=== PATIENT | female | born 1975 | race Caucasian/White ===

== ENCOUNTER 2019-08-16 13:43 | Emergency (ER) | payer OTHER ==
[2019-08-16 14:02] VITALS: PULSE 70; RESP 16; TEMP 98
--- NOTE | 2019-08-16 14:20 | ED ---
Skin/Abscess/FB HPI - General Chief complaint: Skin/Abscess/Foreign Body Stated complaint: FB throat Time Seen by Provider: 08/16/19 14:06 Source: patient, RN notes reviewed, old records reviewed Mode of arrival: ambulatory Limitations: no limitations - History of Present Illness Initial comments: Isn't is a 44-year-old female presents emergency department today with chief complaint of esophagus and chest pain that starts from her sternum radiating towards her back, after she actually swallowed a chicken bone on Sunday. Patient reports that she's been having these intermittent sharp pains since that time. Patient states it does feel like her saliva or food is going over something in her mid throat. Patient states that she has had no difficulty breathing. No vomiting and has been able to tolerate liquids. - Related Data Home Medications Medication Instructions Recorded Confirmed No Known Home Medications 08/16/19 08/16/19 Allergies Allergy/AdvReac Type Severity Reaction Status Date / Time aspirin Allergy Swelling Verified 08/16/19 15:05 Review of Systems ROS Statement: Those systems with pertinent positive or pertinent negative responses have been documented in the HPI. ROS Other: All systems not noted in ROS Statement are negative. Past Medical History Past Medical History: No Reported History History of Any Multi-Drug Resistant Organisms: None Reported Additional Past Surgical History / Comment(s): foot Past Psychological History: No Psychological Hx Reported Smoking Status: Current every day smoker Past Alcohol Use History: None Reported Past Drug Use History: None Reported General Exam - General Exam Comments Initial Comments: 44-year-old female. Alert and oriented. Limitations: no limitations Course Vital Signs 08/16/19 14:00 Temperature 98.0 F Pulse Rate 70 Respiratory 16 Rate Blood Pressure 138/95 O2 Sat by Pulse 99 Oximetry Medical Decision Making - Medical Decision Making Patient is a 44-year-old female presents today for concerns for foreign body sensation in her throat and chest. Patient reports she swallowed a chicken bone on Sunday and continue to have some pains in some trouble swallowing since then. She has been able to drink and tolerate fluids and food. Patient denies any persistent abdominal chest pain. Patient x-rays reviewed and negative for any acute process including the throat and chest and abdomen. EKG showed no acute process. On reevaluation after GI cocktail she does report improvement of symptoms and states that her pain is now numbed. I discussed likely scratched within her esophagus causing her symptoms which will result. Discussed that she has any further persistent pain she should return for reevaluation. All cautions were answered return parameters were discussed. 08/16/19 15:18 EKG performed at 1513 shows sinus bradycardia, low voltage QRS. Cannot rule out anterior infarct age. Ventricular rate 57 bpm. Was 146 ms. Respiration is a 4 ms. QT QTc is 420/[address] elevation or T-wave inversion. - Radiology Data Radiology results: report reviewed KUB is normal, no acute abdominal abnormality. Normal soft tissue of the neck. Chest x-ray. Disposition Clinical Impression: Esophageal abrasion Disposition: HOME SELF-CARE Condition: Good Instructions (If sedation given, give patient instructions): Esophageal Foreign Body (ED) Additional Instructions: Patient advised to drink plenty of fluids. Follow-up with her primary care doctor if symptoms continue to persist. Return to the emergency department if any alarming signs or symptoms occur. [place]: [phone] [place] [address] Appointment is Necessary Call @6AM Sunday, Sunday, Sunday & 8am-11am Only take patients with no insurance or Medicaid. ---Do not accept patient with Blue Cross, Medicare, or Commerical Insurance Is patient prescribed a controlled substance at d/c from ED?: No Referrals: None,Stated [Primary Care Provider] - 1-2 days Denise Blankenship MD [REFERRING] - 1-2 days Time of Disposition: 15:43
[2019-08-16] MEDS ORDERED: MAG HYDROX/AL HYDROX/SIMETH 30 ML, HYOSCYAMINE ELIXIR 10 ML, LIDOCAINE VISCOUS 2% 10 ML PO ONE ×3 (14:41)
--- NOTE | 2019-08-16 15:31 | XR ---
EXAMINATION TYPE: XR chest 2V DATE OF EXAM ORDERED: 08/16/2019 HISTORY: chest pain. REFERENCE: None. FINDINGS: The lungs are clear. Pleural spaces are clear. Heart size is normal. IMPRESSION: NORMAL CHEST.
--- NOTE | 2019-08-16 15:32 | XR ---
EXAMINATION TYPE: XR soft tissue neck , 2 VIEWS DATE OF EXAM ORDERED: 08/16/2019 HISTORY: foreign body swallowed. COMPARISON: None. FINDINGS: Soft tissue views of the neck are normal. No radiopaque foreign body is seen. Prevertebral soft tissues are normal. The epiglottis is normal. IMPRESSION: NORMAL SOFT TISSUE VIEWS OF THE NECK.
--- NOTE | 2019-08-16 15:34 | XR ---
EXAMINATION TYPE: XR KUB , 2 VIEWS DATE OF EXAM ORDERED: 08/16/2019 HISTORY: chest pain. COMPARISON: None. FINDINGS: The lung bases are clear. Within the abdomen, the abdominal gas pattern is normal. There is no evidence of obstruction or free air. There is a solitary phlebolith in the right hemipelvis. IMPRESSION: NO ACUTE INTRA-ABDOMINAL ABNORMALITY.
[2019-08-16 16:03] VITALS: BP 148/90
== END 2019-08-16 16:04 | disposition home or self-care (01) ==
LOC: EC 13:43
DX: S27.818A Other injury of esophagus (thoracic part), initial encounter (principal); F17.200 Nicotine dependence, unspecified, uncomplicated; Z88.6 Allergy status to analgesic agent; X58.XXXA Exposure to other specified factors, initial encounter
CPT/HCPCS: 70360; 71046; 74018; 93005; 99284

== ENCOUNTER → 2024-08-11 | Outpatient (CLI) | payer BC ==
--- NOTE | 2024-08-11 10:30 | USB ---
Reason for Exam: Clinical finding. Risk Values: Lesly 5 year model risk: 0.6%. NCI Lifetime model risk: 6.1%. Technique: Method: Targeted. Findings: The upper inner quadrant of the right breast, the axilla of the right breast and the retroareolar of the right breast were scanned. No solid or cystic masses are identified.. Overall Assessment: Negative, BI-RAD 1 Management: Screening Mammogram of both breasts in 1 year. A clinical breast exam by your physician is recommended on an annual basis and results should be correlated with mammographic findings. This exam should not preclude additional follow-up of suspicious palpable abnormalities. Results were given to the patient verbally at the time of exam. [facility], , 08/11/2024 10:27 AM. Electronically signed and approved by: Hans Vences M.D. [facility]
== END | disposition home or self-care (01) ==
LOC: RADUSWWP 10:08
PROVIDERS: ATTEND Family Medicine